=== PATIENT | female | born 1965 | race Caucasian/White ===

== ENCOUNTER 2023-09-01 20:42 | Emergency (ER) | payer SELFPAY ==
[2023-09-01 20:42] VITALS: BMI 23.2
[2023-09-01 20:44] VITALS: BP 217/130
[2023-09-01 21:04] LABS: Glucose - Point of Care 116 mg/dl (70-99)
[2023-09-01 21:14] VITALS: BP 160/104
[2023-09-01 21:14] LABS: % Basophils 0.5 % (0-2); % Eosinophils 2.7 % (0-6); % Immature Granulocytes 0.3 % (0-0.5); % Lymphocytes 38.1 % (20.5-51.1); % Monocytes 7.2 % (1.7-9.3); % Neutrophils 51.2 % (42.2-75.2); Absolute Eosinophils 0.2 10^3/uL (0-0.7); Absolute Lymphocytes 2.9 10^3/uL (1.2-3.4); Absolute Monocytes 0.5 10^3/uL (0.1-0.6); Absolute Neutrophils 3.9 10^3/uL (1.4-6.5); Hematocrit 39.8 % (37.0-47.0); Hemoglobin 14.3 g/dL (12.0-16.0); Mean Corp Hgb Conc. 35.9 g/dL (33.0-37.0); Mean Corpuscular Hgb 32.6 pg (27.0-31.0); Mean Corpuscular Volume 90.9 fL (81.0-99.0); Mean Platelet Volume 9.3 fL (7.4-10.4); Nucleated Red Blood Cells % 0 %; Platelet Count 244 10^3/uL (130-400); Red Blood Cell Count 4.38 10^6/uL (4.20-5.40); Red Cell Dist. Width 12.9 % (11.5-14.5); White Blood Cell Count 7.5 10^3/uL (4.8-10.8)
[2023-09-01 21:18] LABS: INR 0.98; PT 12.8 Sec (11.4-14.6)
[2023-09-01 21:25] LABS: Erythrocyte Sed Rate 12 mm/hour (0-20)
[2023-09-01 21:28] LABS: ALT (SGPT) 27 U/L (0-35); AST (SGOT) 38 U/L (14-36); Albumin 5.2 g/dl (3.5-5.0); Alkaline Phosphatase 137 U/L (38-126); Blood Urea Nitrogen 21 mg/dl (7-17); Calcium 10.3 mg/dl (8.4-10.2); Carbon Dioxide 29 mmol/L (22-30); Chloride 99 mmol/L (98-107); Estimated Creatinine Clearance 87 ml/min; Glucose 105 mg/dl (70-99); Potassium 3.5 mmol/L (3.5-5.1); Sodium 136 mmol/L (135-145); Total Bilirubin 0.7 mg/dl (0.2-1.3); Total Protein 8.6 g/dl (6.3-8.2); eGFR > 60.00
[2023-09-01 21:38] LABS: Troponin I < 0.012 ng/ml
[2023-09-01 21:46] LABS: Magnesium 1.9 mg/dl (1.6-2.3); Phosphorus 3.7 mg/dl (2.5-4.5)
[2023-09-01 22:00] VITALS: BP 154/100
--- NOTE | 2023-09-01 22:23 | ED.CVA ---
History of Present Illness
General
Chief Complaint: CVA/TIA Symptoms
Source: patient and records
Exam Limitations: none
Time Seen by Provider: 09/01/23 20:57
Nursing documentation reviewed up to this point in time: agreed with
Onset of Stroke Symptoms
Onset of symptoms known: Yes
Date of onset of symptoms: 09/01/23
Time of onset of symptoms: 19:45
Time pt last seen normal is known: Yes
Date last time pt seen normal: 09/01/23
Time last time pt seen normal: 19:45
Travel History
Have you had any contact with someone who has COVID-19?: No
Do you have any symptoms of coronavirus? Fever > 100 degrees, chills, cough, shortness of breath, sore throat, loss of taste or smell, muscle aches, or headache?: No
History of Present Illness
History of Present Illness:
Patient is a 57-year-old female with a history of hypertension and a family history of carotid disease who presents with numbness on her left side that started in her neck and then went to her head and then involve the left upper and lower
extremities. This occurred approximately an hour prior to the emergency department. Patient denies any speech or visual difficulty. Patient denies any headaches. Patient denies chest pain, shortness of breath or palpitations. Patient denies any
focal weakness or ataxia. Patient denies any recent illnesses or injuries. Patient was diagnosed on Monday with COVID. Patient denies any history of similar episodes in the past.
Past History
Past History
ED Past Medical History: HTN
Social History
Tobacco: Former smoker
Alcohol: Occasional
Family History
Family History: CAD
Review of Systems
Review of Systems
All Other Systems: ROS reviewed and negative except as documented in HPI and ROS
Constitutional: Reports no symptoms
EENT: Reports no symptoms
Respiratory: Reports no symptoms
Cardiac: Reports no symptoms
ABD/GI: Reports no symptoms
: Reports no symptoms
Musculoskeletal: Reports no symptoms
Skin: Reports no symptoms
Neurological: Reports numbness (Left side); Denies dizzy, headache or weakness
Hematologic/Lymphatic: Reports no symptoms
Phy Exam
Physical Exam
Physical Exam:
Physical Exam
General: No apparent distress, alert and appropriate, well nourished, well hydrated
HENT: Normocephalic, supple with no lymphadenopathy, no thyromegaly
Eyes: Clear sclera, conjuctiva without injection
Heart: Regular rhythm and rate. No S3, S4. No murmur. No NVD, bruit
Lungs: No respiratory distress, no stridor, lung sounds clear and equal bilaterally
Abdomen: Soft, nontender, no organomegaly, BS good
Neuro: Alert and oriented x 3, CN II - XII intact, no motor focality, no cerebellar dysfunction, sensory intact
Skin: no rash
Psychiatric: well kept. interactive and cooperative
Extremities: No edema, cyanosis, tenderness, Good and equal peripheral pulses.
Scores
NIH Stroke Score
Level of Consciousness: 0 - Alert
LOC Questions: 0-Answers both correctly
LOC Commands: 0-Performs both correctly
Best Horizontal Gaze: 0-Normal
Visual [place]: 0=Normal, no visual loss
Facial Palsy: 0=Normal, symmetrical
Motor - Right Arm: 0=No drift 10 seconds
Motor - Left Arm: 0=No drift 10 seconds
Motor - Right Le-No drift 5 seconds
Motor - Left Le-No drift 5 seconds
Limb Ataxia: 0-Absent
Sensation: 0-Normal
Best Language: 0-No aphasia
Dysarthria: 0-Normal
Extinction and Inattention: 0-No abnormality
Total Score:: 0
Course
Orders/Labs/Results
Orders:
Orders
09/01/23 20:57
Electrocardiogram (*1) Urgent
Reason for Study: Other
Other Reason for Exam: Possible Stroke
Bedside Glucose- Treatment ONCE
Cardiac Monitoring- Treatment ONCE
EKG- Treatment ONCE
IV Insert/Care/Rem.- Treatment PRN
Vital Signs As Directed
Frequency: Other
Weight As Directed
Frequency: Once
Comment: ZERO STRETCHER SCALE FOR ACCURATE WEIGHT
O2 Therapy [RESP] Urgent
Titrate/Wean O2 to maintain O2 sat greater than (%): 93
Special Instructions: MAINTAIN CONTINUOUS O2 SATS > OR = 93%
09/01/23 20:59
Add On- LAB Urgent
Tests Added?: magnesium, phosphorus
09/01/23 21:05
Complete Blood Count/With Diff Urgent
Comprehensive Metabolic Panel Urgent
Erythrocyte Sed Rate Urgent
Magnesium Urgent
Comment: ADD ON
PTT Urgent
Phosphorus Urgent
Comment: ADD ON
Prothrombin Time Urgent
Troponin I Urgent
09/01/23 21:06
CT Head & Neck Angio W/wo IV Urgent
Comment:
Reason For Exam: left sided sx
Cardiac Monitoring- Treatment ONCE
IV Insert/Care/Rem.- Treatment PRN
09/01/23 21:07
Electrocardiogram (*1) Stat
Reason for Study: Other
Other Reason for Exam: neuro symptoms
EKG- Treatment ONCE
09/01/23 23:57
Amlodipine [Norvasc] 10 mg PO NOW STA
Abnormal Lab Results
09/01/23 09/01/23
21:03 21:05
MCH 32.6 H pg
(27.0-31.0)
BUN 21 H mg/dl
(7-17)
Glucose 105 H mg/dl
(70-99)
Calcium 10.3 H mg/dl
(8.4-10.2)
AST 38 H U/L
(14-36)
Alkaline Phosphatase 137 H U/L
(38-126)
Total Protein 8.6 H g/dl
(6.3-8.2)
Albumin 5.2 H g/dl
(3.5-5.0)
POC Glucose 116 H mg/dl
(70-99)
09/01/23 21:05
09/01/23 21:05
Vital Signs
Initial and Last Documented VS:
Initial Vital Signs
Temp Pulse Resp BP Pulse Ox
99.0 F 114 20 217/130 99
09/01/23 20:44 09/01/23 20:44 09/01/23 20:44 09/01/23 20:44 09/01/23 20:44
Last Documented Vital Signs
Temp Pulse Resp BP Pulse Ox
99.0 F 89 26 170/96 96
09/01/23 20:44 09/01/23 23:30 09/01/23 23:30 09/01/23 23:29 09/01/23 23:30
*Radiology
Radiology exam reviewed: radiology read reviewed (No acute or subacute findings and major vessels open)
*Pulse Oximetry
Patient hypoxic: no
*EKG
Interpreted by ED Provider?: Yes
EKG Intrepretation Date: 09/02/23
EKG Intrepretation Time: 00:22
Interpretation: abnormal
Comparison EKG: no changes
Heart Rate: 97
Rate: normal
Rhythm: sinus
[place]: normal axis
Interval: normal interval
QRS Pattern: normal QRS
Ischemia: non-specific ST changes
*Imaging Assistant Interpretation
Rate: normal
Interpretation: normal
Heart Rate: 92
Rhythm: sinus
*Critical Care Note
Total Time (30-74mins, 75-104mins- exclusive of procedures): 45 minutes
Update Note
Update Note:
Patient shows some microvascular changes but nothing of significance. Symptoms have completely cleared. Patient will go on a baby aspirin a day. Patient will increase her Norvasc. Patient is to follow-up with her family doctor in the next few
days. Patient will be referred to neurology as an outpatient.
ED Attending Note
-
Portions of this chart may have been created with voice recognition software.� Occasional wrong word or��sound alike� substitutions may have occurred due to the inherent limitations of voice recognition software.
Discharge Plan
Departure
Patient Disposition: Home (Routine Discharge)
Date of Disposition: 09/02/23
Time of Disposition: 00:23
Patient with high blood pressure during this ER visit?: Yes
Condition: Good
Covid-19: Not Applicable
Discharge Problem:
Numbness
Instructions: Transient Ischemic Attack (DC), Paresthesia (DC), BLOOD PRESSURE
Prescriptions:
No Action
losartan 50 MG tablet
100 mg PO DAILY
amlodipine 10 MG tablet
10 mg PO DAILY
tizanidine 4 MG tablet
4 mg PO HS
oxycodone-acetaminophen [Percocet] 1 EACH tablet
1 tab PO TID
solifenacin 5 MG tablet
5 mg PO DAILY
hydrocodone-acetaminophen [Vicodin] 1 EACH tablet
1 ea PO Q6HPRN PRN (Reason: pain) Qty: 7 0RF
cefdinir [Omnicef] 300 MG capsule
300 mg PO BID Qty: 7 1RF
Referrals:
French Adams MD [Active] - Call in 1-3 days for appt
Beatrice Batres CRNP [Family Provider] - Follow up in 2-3 days
Activity Restrictions/Additional Instructions:
Keep track of your blood pressure in the morning and in the afternoon. Continue present medications. You may need to increase your Norvasc to twice a day but follow-up with your family doctor before doing this. Take a baby aspirin every day.
Interventions
Interventions:
*Risk Screen - Suicide Last Done: 09/01/23 20:46
*General Assessment Last Done: 09/01/23 20:46
*Neglect/Abuse Screening Last Done: 09/01/23 20:46
ED- Fall Risk Assessment Last Done: 09/01/23 20:47
ED- Pulmonary Assessment Last Done: 09/01/23 21:34
ED- Neurological Assessment Last Done: 09/01/23 21:34
ED- Cardiac Assessment Last Done: 09/01/23 21:34
ED Swallowing Screen Last Done: 09/01/23 21:12
[2023-09-01 23:05] VITALS: BP 173/96
[2023-09-01 23:29] VITALS: BP 170/96
[2023-09-02] VITALS: BP 160/97
[2023-09-02] MEDS: NORVASC 10 MG PO (00:23)
[2023-09-02 00:51] VITALS: BP 159/97
== END 2023-09-02 01:02 | disposition home or self-care (01) ==
LOC: EMR 20:42
PROVIDERS: EMERGENCY PHYSICIAN Emergency Medicine; FAMILY PHYSICIAN Nurse Practitioner Adult Health
DX: R20.0 Anesthesia of skin (principal); Z87.891 Personal history of nicotine dependence; I10 Essential (primary) hypertension; Z82.49 Family history of ischemic heart disease and other diseases of the circulatory system
CPT/HCPCS: 99285; 70496; 70498; 80053; 82962; 83735; 84100; 84484; 85025; 85610; 85652; 85730; 93005; Q9967

== ENCOUNTER → 2024-02-15 11:59 | Outpatient (REF) | payer OTHER, SELFPAY | LOC: HWWDC 11:59 | PROVIDERS: ATTENDING PHYSICIAN Nurse Practitioner Adult Health | DX: Z12.31 Encounter for screening mammogram for malignant neoplasm of breast (principal) | CPT/HCPCS: 77063; 77067 ==

== ENCOUNTER → 2024-02-29 12:53 | Outpatient (REF) | payer OTHER, SELFPAY | LOC: HWRAD 12:53 | PROVIDERS: ATTENDING PHYSICIAN Nurse Practitioner Adult Health | DX: E04.1 Nontoxic single thyroid nodule (principal) | CPT/HCPCS: 76536 ==

== ENCOUNTER → 2024-03-07 13:32 | Outpatient (REF) | payer OTHER, SELFPAY | LOC: HWRAD 13:32 | PROVIDERS: ATTENDING PHYSICIAN Nurse Practitioner Adult Health | DX: F17.210 Nicotine dependence, cigarettes, uncomplicated (principal) | CPT/HCPCS: 71271 ==

== ENCOUNTER → 2024-04-24 10:39 | Outpatient (REF) | payer OTHER, SELFPAY ==
[2024-04-24 10:50] VITALS: BP 154/97; BP_SYST 94
== END ==
LOC: RADI 10:39
PROVIDERS: ATTENDING PHYSICIAN Nurse Practitioner Adult Health
DX: E04.1 Nontoxic single thyroid nodule (principal)
CPT/HCPCS: 88173; 10005

== ENCOUNTER 2025-06-30 06:23 | Day surgery (SDC) | payer OTHER, SELFPAY | END 2025-06-30 10:25 | disposition home or self-care (01) | LOC: GI 06:23 | PROVIDERS: ATTENDING PHYSICIAN Internal Medicine Gastroenterology; FAMILY PHYSICIAN Nurse Practitioner Adult Health | DX: Z12.11 Encounter for screening for malignant neoplasm of colon (principal); R19.5 Other fecal abnormalities; K64.8 Other hemorrhoids; K57.30 Diverticulosis of large intestine without perforation or abscess without bleeding | CPT/HCPCS: G0121 ==